=== PATIENT | female | born 1950 | race Caucasian/White ===

== ENCOUNTER 2016-05-10 09:39 | Outpatient (CLI) | payer OTHER ==
--- NOTE | 2016-05-10 12:36 | DIAGNOSTIC IMAGING REPORT ---
PROCEDURE: MR LUMBAR SPINE W/WO CONTRAST INDICATION: Chronic low back pain with bilateral radiculopathy. TECHNIQUE: T1, T2 and STIR sagittal images. T1 and T2 axial images. Following 10 \mL of intravenous gadolinium (ProHance), FAT-SAT T1 sagittal and axial images were obtained. COMPARISON: None. FINDINGS: L3-S1 surgical fusion with pedicle screws and vertical bars. Prominent para magnetic susceptibility artifacts. Partial bony fusion from L3- S1. Normal alignment with large spurs most prominent at L2-3. Disc bulging at L1-2, L2 through L3-4. No suspicious osseous lesion. 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 Paraspinal soft tissues are unremarkable. Bilateral renal cysts. L1-2: Moderate right foraminal disc herniation superimposed on a broad-based disc bulge with moderate right and mild left foraminal stenosis. Mild facet arthropathy and thickening of the ligament flava. No spinal stenosis. L2-3: Moderate to broad-based disc bulge/spur complex with mild facet arthropathy and thickening of the ligament flava. There is mild bilateral foraminal and spinal stenosis. L3-4: Laminectomy. Small disc bulge and mild facet arthropathy. There is no foraminal or spinal stenosis. No evidence of postoperative fibrosis. L4-5: Laminectomy. Prominent magnetic susceptibility artifacts but no evidence of disc bulge and foramina are grossly normal. No evidence of postoperative fibrosis. L5-S1: Laminectomy. No disc bulge. Prominent magnetic susceptibility artifacts but foramina are grossly normal. No spinal stenosis. No evidence of postoperative fibrosis. IMPRESSION: 1. Moderately severe degenerative changes with multilevel disc bulging 2. 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 L3-S1 laminectomies and surgical fusion without evidence of postoperative fibrosis 4. L1-2 right foraminal disc herniation with moderate right and mild left foraminal stenosis 5. L2-3 disc bulge with mild bilateral foraminal and spinal stenosis. 6. Prominent magnetic susceptibility artifacts at L4-5 and L5-S1 but foramina are grossly normal.
== END 2016-05-10 23:00 ==
LOC: MRI SRH 09:39
DX: M54.5 Low back pain (principal)
CPT/HCPCS: 90074; 91631; 92560